=== PATIENT | female | born 1965 | race Caucasian/White ===

== ENCOUNTER → 2017-12-25 | Outpatient (CLI) | payer OTHER ==
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
== END | disposition home or self-care (01) ==
LOC: RADXRYALE 10:26
PROVIDERS: ATTEND Family Medicine
DX: J34.2 Deviated nasal septum (principal)
CPT/HCPCS: 70160

== ENCOUNTER → 2018-05-22 | Outpatient (CLI) | payer OTHER ==
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
== END ==
LOC: RADXRYALE 08:40
PROVIDERS: ATTEND Family Medicine
DX: N20.1 Calculus of ureter (principal); N30.01 Acute cystitis with hematuria
CPT/HCPCS: 74018

== ENCOUNTER → 2019-03-10 | Outpatient (CLI) | payer OTHER ==
--- NOTE | 2019-03-11 09:54 | MM ---
Reason for exam: screening (asymptomatic). Last mammogram was performed 1 year ago. History: Family history of premenopausal breast cancer in maternal cousin at age 32. Physical Findings: A clinical breast exam by your physician is recommended on an annual basis and results should be correlated with mammographic findings. MG Screening Mammo w CAD Bilateral CC and MLO view(s) were taken. Prior study comparison: February 27, 2018, bilateral MG screening mammo w CAD. February 19, 2017, bilateral MG screening mammo w CAD. The breast tissue is heterogeneously dense. This may lower the sensitivity of mammography. Stable benign calcifications in the right breast. No significant changes when compared with prior studies. ASSESSMENT: Benign, BI-RAD 2 RECOMMENDATION: Routine screening mammogram of both breasts in 1 year.
== END | disposition home or self-care (01) ==
LOC: RADMAMWWP 11:00
PROVIDERS: ATTEND Family Medicine
DX: Z12.31 Encounter for screening mammogram for malignant neoplasm of breast (principal)
CPT/HCPCS: 77067

== ENCOUNTER → 2020-04-19 | Outpatient (CLI) | payer OTHER ==
--- NOTE | 2020-04-24 11:35 | MM ---
Reason for exam: screening (asymptomatic). Last mammogram was performed 1 year and 1 month ago. History: Patient is postmenopausal. Family history of premenopausal breast cancer in maternal cousin at age 32. Physical Findings: A clinical breast exam by your physician is recommended on an annual basis and results should be correlated with mammographic findings. MG Screening Mammo w CAD Bilateral CC and MLO view(s) were taken. Prior study comparison: March 10, 2019, bilateral MG screening mammo w CAD. February 27, 2018, bilateral MG screening mammo w CAD. There are scattered fibroglandular densities. No significant changes when compared with prior studies. ASSESSMENT: Benign, BI-RAD 2 RECOMMENDATION: Routine screening mammogram of both breasts in 1 year.
== END | disposition home or self-care (01) ==
LOC: RADMAMWWP 14:44
PROVIDERS: ATTEND Family Medicine
DX: Z12.31 Encounter for screening mammogram for malignant neoplasm of breast (principal)
CPT/HCPCS: 77067